=== PATIENT | male | born 1990 | race African-American/Black ===

== ENCOUNTER 2019-01-21 17:18 | Emergency (ER) | payer SELFPAY ==
[2019-01-21] MEDS ORDERED: Acetaminophen 325 MG TAB ONE (17:30)
--- NOTE | 2019-01-21 18:10 | RAD ---
RIGHT HAND THREE VIEWS: HISTORY: Injury. FINDINGS: The carpals appear intact. The metacarpals and phalanges appear intact. IMPRESSION: No acute fracture identified. POS: [id number]
== END 2019-01-21 18:26 | disposition home or self-care (01) ==
LOC: ERS 17:18
DX: S60.221A Contusion of right hand, initial encounter (principal); F17.210 Nicotine dependence, cigarettes, uncomplicated; J45.909 Unspecified asthma, uncomplicated; W22.09XA Striking against other stationary object, initial encounter

== ENCOUNTER 2019-05-11 14:35 | Emergency (ER) | payer SELFPAY | END 2019-05-11 15:49 | disposition left against medical advice (07) | LOC: ERS 14:35 | DX: Z53.21 Procedure and treatment not carried out due to patient leaving prior to being seen by health care provider (principal) ==

== ENCOUNTER 2019-06-02 13:43 | Emergency (ER) | payer SELFPAY ==
[2019-06-02] MEDS ORDERED: Ondansetron PF 4 MG/2 ML Vial ONE ×2 (14:06→15:23)
[2019-06-02 14:31] LABS: #Eosinphils 0.1 thou/uL (0.0-0.7); #Lymphocytes 1.4 thou/uL (1.20-3.40); #Monocytes 0.5 thou/uL (0.11-0.59); #Neutrophils 6.9 thou/uL (1.40-6.50); %Basophils 0.5 % (0.0-1.0); %Eosinophils 0.7 % (0.0-10.0); %Monocytes 5.5 % (0.0-10.0); %Neutrophils 77.2 % (42.0-75.0); Hemoglobin 14.4 g/dL (14.0-18.0); Mean Corpuscular HGB CONC 32.9 g/dL (32.0-36.0); Mean Platelet Volume 8.1 fL (7.4-10.4); Platelet Count 255 thou/uL (130-400); RBC Distribution Width 11.5 % (11.5-14.5); Red Blood Cell (RBC) Count 4.66 mill/uL (4.70-6.10); White Blood Cell (WBC) Count 8.9 thou/uL (4.8-10.8)
[2019-06-02 14:52] LABS: ALT (SGPT) 16 U/L (8-55); AST (SGOT) 25 U/L (5-34); Albumin 4.4 g/dL (3.5-5.0); Alkaline Phosphatase 81 U/L (40-110); Anion Gap 14 mmol/L (10-20); BUN (Urea Nitrogen) 10 mg/dL (8.9-20.6); Bilirubin, Total 0.9 mg/dL (0.2-1.2); CK (CPK) 159 U/L (30-200); Calc. Creatinine Clearance 0 mL/min (70-130); Calcium 9.3 mg/dL (7.8-10.44); Carbon Dioxide 23 mmol/L (22-29); Chloride 109 mmol/L (98-107); Estimated GFR-MDRD Greater than 90; Globulin 3.3 g/dL (2.4-3.5); Glucose 94 mg/dL (70-105); Magnesium 1.7 mg/dL (1.6-2.6); Protein, Total 7.7 g/dL (6.0-8.3); Sodium 142 mmol/L (136-145)
== END 2019-06-02 15:43 | disposition home or self-care (01) ==
LOC: ERS 13:43
DX: A08.4 Viral intestinal infection, unspecified (principal); R11.2 Nausea with vomiting, unspecified; F17.200 Nicotine dependence, unspecified, uncomplicated
CPT/HCPCS: 80053; 82550; 83605; 83735; 85025; 96361; 96374; 96376; J2405

== ENCOUNTER 2020-05-28 17:22 | Emergency (ER) | payer SELFPAY | END 2020-05-28 20:17 | disposition home or self-care (01) | LOC: ERS 17:22 | DX: K04.7 Periapical abscess without sinus (principal); J45.909 Unspecified asthma, uncomplicated; F17.210 Nicotine dependence, cigarettes, uncomplicated | CPT/HCPCS: 41800 ==

== ENCOUNTER 2022-03-11 07:00 | Emergency (ER) | payer SELFPAY ==
[2022-03-11 07:53] LABS: SARS-CoV-2 NAA Rapid Test DETECTED (NotDetected)
[2022-03-11] MEDS ORDERED: Acetaminophen 500 MG TAB ONE (08:24)
== END 2022-03-11 10:04 | disposition home or self-care (01) ==
LOC: ERS 07:00
DX: U07.1 COVID-19 (principal); J45.909 Unspecified asthma, uncomplicated; F17.210 Nicotine dependence, cigarettes, uncomplicated
CPT/HCPCS: 99283

== ENCOUNTER 2022-10-28 07:57 | Emergency (ER) | payer SELFPAY ==
[2022-10-28 09:27] LABS: SARS-CoV-2 NAA Rapid Test DETECTED (NotDetected)
== END 2022-10-28 09:38 | disposition home or self-care (01) ==
LOC: ERS 07:57
DX: U07.1 COVID-19 (principal); F17.210 Nicotine dependence, cigarettes, uncomplicated
CPT/HCPCS: 99284

== ENCOUNTER 2024-10-11 19:35 | Emergency (ER) | payer SELFPAY ==
[2024-10-11 20:16] LABS: #Basophils 0.05 10x3/uL (0.0-0.2); #Eosinophils 0.12 10x3/uL (0.0-0.7); #Monocytes 0.50 10x3/uL (0.11-0.59); #Neutrophils 4.52 10x3/uL (1.40-6.50); %Basophils 0.7 % (0.0-1.0); %Eosinophils 1.8 % (0.0-10.0); %Lymphocytes 23.5 % (21.0-51.0); %Monocytes 7.4 % (0.0-10.0); %Neutrophils 66.5 % (42.0-75.0); Hematocrit 39.7 % (42.0-52.0); Hemoglobin 12.8 g/dL (14.0-18.0); Mean Corpuscular Hemoglobin 29.4 pg (27.0-31.0); Mean Corpuscular Volume 91.1 fL (78.0-98.0); Platelet Count 266 10x3/uL (130-400); Red Blood Cell (RBC) Count 4.36 mill/uL (4.70-6.10); White Blood Cell (WBC) Count 6.80 10x3/uL (4.8-10.8)
[2024-10-11 20:36] LABS: ALT (SGPT) 34 U/L (Less than 45); AST (SGOT) 43 U/L (11-34); Albumin 4.1 g/dL (3.1-4.5); Alkaline Phosphatase 107 U/L (40-110); Anion Gap 11 mmol/L (10-20); BUN (Urea Nitrogen) 16 mg/dL (8.9-20.6); Bilirubin, Total 1.2 mg/dL (0.3-1.2); Calc. Creatinine Clearance 0 mL/min (70-130); Calcium 8.9 mg/dL (7.8-10.44); Carbon Dioxide 27 mmol/L (22-29); Chloride 105 mmol/L (98-107); Globulin 3.2 g/dL (2.4-3.5); Glucose 108 mg/dL (70-105); Potassium 3.7 mmol/L (3.5-5.1); Sodium 139 mmol/L (136-145)
[2024-10-12] MEDS ORDERED: Ketorolac Tromethamine 30 MG (1 mL) VIAL ONE (00:01)
[2024-10-12] MEDS ORDERED: predniSONE 20 MG TAB ONE (00:01)
[2024-10-12] MEDS ORDERED: Iopamidol-370 76% 500 ML MDV (1 ML CHARGE) ONE (11:25)
== END 2024-10-12 03:43 | disposition home or self-care (01) ==
LOC: ERS 19:35
DX: S22.42XA Multiple fractures of ribs, left side, initial encounter for closed fracture (principal); B34.9 Viral infection, unspecified; F17.210 Nicotine dependence, cigarettes, uncomplicated; X58.XXXA Exposure to other specified factors, initial encounter
CPT/HCPCS: 36415; 71045; 71275; 80053; 83690; 83880; 84484; 85025; 93005; 96374; 96375; J1885; J3010; J7512; Q9967

== ENCOUNTER 2024-10-26 13:42 | Emergency (ER) | payer SELFPAY | END 2024-10-26 14:37 | disposition home or self-care (01) | LOC: ERS 13:42 | DX: R05.1 Acute cough (principal); F17.210 Nicotine dependence, cigarettes, uncomplicated | CPT/HCPCS: 71046; 87428 ==